=== PATIENT | female | born 1980 | race Hispanic/Latino ===

== ENCOUNTER 2018-03-02 07:34 | Inpatient (IN) | payer MEDICAID, SELFPAY ==
[2018-03-02 08:13] VITALS: BMI 30.2
[2018-03-02 09:13] LABS: Amnisure Test RUPTURE DETECTED (No Rupture)
[2018-03-02 09:14] LABS: Amnisure Internal Control QC ACCEPTABLE (ACCEPTABLE)
[2018-03-02] MEDS ORDERED: Acetaminophen 500 MG TAB PO PRN (09:31)
[2018-03-02] MEDS ORDERED: Promethazine HCl 25 MG/ML VIAL IM PRN ×2 (09:31→21:09)
[2018-03-02] MEDS ORDERED: Ibuprofen 800 MG TAB PO PRN (09:31)
[2018-03-02] MEDS ORDERED: Diphenoxylate HCl/Atropine Tablet PO PRN (09:31)
[2018-03-02] MEDS ORDERED: Lidocaine 1% (PF) 30 ML VIAL SC PRN (09:31)
[2018-03-02] MEDS ORDERED: Ondansetron PF 4 MG/2 ML Vial IVP PRN ×2 (09:31→21:09)
[2018-03-02] MEDS ORDERED: Acetaminophen/Codeine 30-300mg Tablet PO PRN (09:31)
[2018-03-02] MEDS ORDERED: Methylergonovine 0.2 MG/ML VIAL IM PRN (09:31)
[2018-03-02] MEDS ORDERED: Carboprost 250 MCG/ML AMP IM PRN (09:31)
[2018-03-02] MEDS ORDERED: Misoprostol 200 MCG TAB PR PRN (09:31)
[2018-03-02] MEDS ORDERED: Butorphanol Tartrate 1 MG/ML VIAL SLOW IVP PRN (09:31)
[2018-03-02] MEDS ORDERED: NS w/ Oxytocin 10 units 500 ML IV SCH (09:45)
[2018-03-02] MEDS ORDERED: Penicillin G Potassium 5 MILL.UNITS in Sodium Chloride 0.9% 100 ML IVPB SCH (09:45)
[2018-03-02] MEDS: Lactated Ringer's 1,000 ML IV SCH ×2 (09:45→19:51)
[2018-03-02] MEDS ORDERED: Dextrose 50% Abboject 50 ML SYRINGE SLOW IVP PRN (09:57)
[2018-03-02] MEDS ORDERED: HumaLOG 300 UNITS/3 ML VIAL SC PRN ×2 (09:57→10:12)
[2018-03-02] MEDS ORDERED: Dextrose 5% in Water 1,000 ML IV PRN (09:57)
[2018-03-02] MEDS ORDERED: Betamet Acet/Betamet Na Ph 30 MG/5 ML VIAL IM SCH (10:00)
[2018-03-02] MEDS ORDERED: Penicillin G Potassium 5 MILL.UNITS VIAL ONE (10:02)
[2018-03-02 10:05] LABS: Mean Corpuscular HGB CONC 34.9 g/dL (32.0-36.0); Mean Corpuscular Hemoglobin 26.4 pg (27.0-31.0); Mean Corpuscular Volume 75.5 fL (78.0-98.0); Mean Platelet Volume 10.8 fL (7.4-10.4); Platelet Count 222 thou/uL (130-400); RBC Distribution Width 19.2 % (11.5-14.5); Red Blood Cell (RBC) Count 4.91 mill/uL (4.20-5.40); White Blood Cell (WBC) Count 7.4 thou/uL (4.8-10.8)
[2018-03-02 10:25] LABS: ALT (SGPT) 16 U/L (8-55); AST (SGOT) 18 U/L (5-34); Albumin 3.3 g/dL (3.5-5.0); Alkaline Phosphatase 197 U/L (40-150); Anion Gap 14 mmol/L (10-20); BUN (Urea Nitrogen) 6 mg/dL (7.0-18.7); Bilirubin, Total 0.8 mg/dL (0.2-1.2); Calc. Creatinine Clearance 154 mL/min (70-130); Calcium 8.8 mg/dL (7.8-10.44); Carbon Dioxide 18 mmol/L (22-29); Chloride 109 mmol/L (98-107); Estimated GFR-MDRD Greater than 90; Globulin 3.3 g/dL (2.4-3.5); Glucose 75 mg/dL (70-105); Potassium 4.2 mmol/L (3.5-5.1); Protein, Total 6.6 g/dL (6.0-8.3); Sodium 137 mmol/L (136-145)
[2018-03-02 10:43] LABS: Hemoglobin A1c 6.4 % (4.0-6.0)
[2018-03-02 10:54] LABS: HBSAg Index 0.16 S/CO (0-0.99); Hep B Surf Ag Non-Reactive S/CO (NonReactive)
[2018-03-02 10:55] LABS: Syphilis Antibody Nonreactive (Nonreactive); Syphilis Antibody Index 0.09 S/CO (<1.00 Non-Reactive)
[2018-03-02] MEDS ORDERED: Insulin Regular 100 units/100 ml in NS IVPB SCH (11:00)
[2018-03-02] MEDS ORDERED: Dextrose 5%-Lactated Ringers 1,000 ML IV SCH ×2 (11:00→23:15)
[2018-03-02] MEDS: HumaLOG 300 UNITS/3 ML VIAL SC SCH ×2 (12:38→18:34)
--- NOTE | 2018-03-02 12:41 | PDOC.LDHP ---
Labor and Delivery H&P Chief complaint: loss of fluid HPI: 37 y/o at 35.5wga per 14w sono c/w LMP presents with LOF. Was sleeping this am ay 0700 and felt fluid and came to hospital. Denies HENRY, SOB, CP, Vaginal bleeding, dysuria, feeling contractions, fever, chills. Cervical chec 2/ 40/-2 with ctx q2min and cat 1 tracing. Her previous history includes 2 term vaginal deliveries in 1996 and 2004 that were reportedly uncomplicated. history for this includes GDM, AMA, BV infection, GBS+ curine cultures x2. labs reviewed and unremarkable. Current complications: gestational diabetes Current medications: pre-rosalai vitamins (insulin; see plan) Previous surgical history: other (ovarian cyst removal) Allergies/Adverse Reactions: Allergies Allergy/AdvReac Type Severity Reaction Status Date / Time No Known Allergies Allergy Verified 03/02/18 08:13 Social history: none - Physical Exam Vital signs reviewed and normal: yes General: NAD, resting Heart: RRR Lungs: nonlabored breathing Abdomen: NTTP (3cm vertical midline scar on abdomen below umbilicus) Extremeties: no edema FHT: category 1 - Vaginal Exam cm dilated: 2 Effacement: 50% Station: -2 - OB Labs Blood type: A RH: positive Antibody Screen: negative HIV: negative HEPSAg: positive (358) GBS: positive Urine drug screen: not done Rubella: immune - Plan -: 37 y/o f at 35.5 wga admitted for ROM 1. PPROM - ROM confirmed by amnisure at 0700 03/02. Ordered Penicillin prophylaxis dose for GBS. Also has been given Betamehosone dose and one scheduled tomorrow. Category 1 tracing. 240/-2 on cervical exam and will monitor for change and labor. Monitor for s/s of infection/fever as well. BPP, biometry and Umbilical artery dopplers ordered. Procal negative. Also screening for G/C and VP3 ordered. 2. GDM - Believed to be class B as she is on a home regimen of Humalog 16u before breakfast and 12u before dinner. Also on Hovolin N 36u before breakfast and 14u at bedtime. We are holding this currently and she has been placed on Humalog moderate SSI. Her BG was 78 upon admission. Will start insulin drip as needed if unable to control with SSI. Asymptomatic. A1c 6.5. Accuchecks q2hr. 3. Advanced Maternal Age - Continue to closely monitor mother and activity. 4. GBS+: Pos from 2 pos cultures during care. Penicillin ordered. Pericare with cervical checks. FMR OB H&P: A/P - Problem List (1) premature rupture of membranes (PPROM) with unknown onset of labor Current Visit: Yes Status: Acute Code(s): O42.919 - PRETRM MCKENNA ROM, UNSP TIME BETW RUPT AND ONST LABR, UNSP TRI (2) Gestational diabetes mellitus (GDM) affecting Current Visit: Yes Status: Acute Code(s): O24.419 - GESTATIONAL DIABETES MELLITUS IN , UNSP CONTROL (3) Positive GBS test Current Visit: Yes Status: Acute Code(s): B95.1 - STREPTOCOCCUS, GROUP B, CAUSING DISEASES CLASSD ELSWHR (4) Advanced maternal age (AMA) in Current Visit: Yes Status: Acute Code(s): FKZ9107 - Discussion: Date/Time: 03/02/18 1318 This H&P was discussed with Dr. Renner who agrees with the above documentation and plan. Addendum - Attending - Attending Attestation Date/Time: 03/02/18 1633 I personally evaluated the patient and discussed the management with Dr. Valenzuela I agree with the History, Examination, Assessment and Plan documented above with any addition or exceptions noted below. 38 yo female at 35.5 wks by LMP/14.2 wk sono here for ROM. Patient reports ROM at 0700 this morning. Clear fluid. No contractions. No evidence of bleeding. Denies discharge. +FM KARMEN: 04/01/18 VS reviewed. Fundus nontender Fluid in vault on exam. No discharge. Vaginal swabs taken. SVE 50/-3 Cat 1 tracing. 1 ctx q 3 min 1. PPROM: ROM on 03/02/18 at 0700. Will repeat exam in 2 hours. Discussed steroid use for FLM. Discussed pitocin for augmentation and decreasing risk for IUI. Send placenta to path. Cultures pending. sono pending. 2. sIUP: IOB labs reviewed. Anatomy reviewed. NILM/HPV 09/2017. 1 hour gtt = 358. 3T negative. GBS positive. Unsure when Flu/Tdap given. Will need to follow up with PNC on Saturday. Cephalic. EFW 6lbs. Request epidural for pain control. 3. AMA: Anatomy reviewed. Level II sono. Unsure if NIPT performed. 4. Hx of blood transfusion: Antibody screen negative. 5. Hx of ovarian cyst removal with low vertical skin incision 6. hx of depression: Monitor closely 7. Class B vs A2 GDM: Concern for possible pregestational DM due to significant 1 hour gtt value. Has been followed by MFM. Unable to see if ECHO performed. Has been on insulin. Check A1c today. Continue q 2 hour accu checks with SSI adjustments. Insulin drip if needed. Change to q 1 hour accu checks in active labor. 8. GBS carrier: PCN started. GBS bacteruria x2. Possible culprit. 9. hx of BV and candidia infection in 3T: treated. VP3 pending. 10. Iron def anemia: Has been on supplemental iron 11. Rubella nonimmune: MMR pp Dispo: Admit and monitor closely. Continue to discuss expectant management vs active management. Bhargav
[2018-03-02] MEDS: Penicillin G 2.5 MILL.units 2.5 MILL.UNITS in Premix Bag 1 BAG IVPB SCH ×3 (14:07→22:03)
--- NOTE | 2018-03-02 15:39 | ULT ---
OB ULTRASOUND: HISTORY: Premature rupture of membranes. COMPARISON: None. FINDINGS: Real-time smith-scale and color evaluation of the gravid uterus was performed. The exam is limited du e to interference, likely from the MR scanner. A single viable intrauterine with an averag e ultrasound age of 35 weeks and 0 days. Estimated date of delivery is 04/06/2018. Estimated weight is 5 lbs 14 oz (41st percentile). BIOMETRY: BIPARIETAL DIAMETER: 33 weeks 2 days (8.29 cm). HEAD CIRCUMFERENCE: 35 weeks 1 day (31.39 cm). ABDOMINAL CIRCUMFERENCE: 35 weeks 4 days (31.67 cm). FEMUR LENGTH: 36 weeks 0 days (7.03 cm). AMNIOTIC FLUID INDEX: 7.1 cm. BIOPHYSICAL PROFILE SCORE: 8/8. POSITION: Vertex. PLACENTA: Posterior. heart rate documented at 135 beats per minute. The cervix is not interrogated. The placenta appears to be fundal. Presentation is vertex. No plac enta previa is appreciated. IMPRESSION: 1. Single viable intrauterine with low amniotic fluid with an index of 7.1. 2. Biophysical profile score 8/8. 3. The technologist states the cervix is measured at 2.98 cm. POS: [facility]
--- NOTE | 2018-03-02 17:23 | PDOC.LDPN ---
Labor & Delivery Progress Note - Subjective Subjective: comfortable - Objective Vital signs reviewed and normal: yes General: NAD, resting Uterine fundus: tender to palpation Dilation: 3 Effacement: 50% Station: -2 FHT: category 1 - Assessment (1) premature rupture of membranes (PPROM) with unknown onset of labor Code(s): O42.919 - PRETRM MCKENNA ROM, UNSP TIME BETW RUPT AND ONST LABR, UNSP TRI Current Visit: Yes Status: Acute (2) Gestational diabetes mellitus (GDM) affecting Code(s): O24.419 - GESTATIONAL DIABETES MELLITUS IN , UNSP CONTROL Current Visit: Yes Status: Acute (3) Advanced maternal age (AMA) in Code(s): NQI5854 - Current Visit: Yes Status: Acute (4) Positive GBS test Code(s): B95.1 - STREPTOCOCCUS, GROUP B, CAUSING DISEASES CLASSD ELSWHR Current Visit: Yes Status: Acute Plan: continue plan of care, labor augmentation, pitocin for augmentation -: 1. PPROM: - ROM on 03/02/18 at 0700. Repeat exam at 1530 was 3/50/-2. - Got first dose of betamethasone, 2nd dose tomorrow - GBS prophylaxis s/p 2 doses of penicillin - going from expectant management to active - plan to start pitocin tonight 2. sIUP: - IOB labs reviewed. Anatomy reviewed. NILM/HPV 09/2017. 1 hour gtt = 358. 3T negative. GBS positive. Unsure when Flu/Tdap given. Will need to follow up with PNC on Saturday. Cephalic. EFW 6lbs. Request epidural for pain control. 3. AMA: - Anatomy reviewed. Level II sono. Unsure if NIPT performed. 4. Hx of blood transfusion: - Antibody screen negative. 5. Class B vs A2 GDM: - Has been followed by M. - Has been on insulin. A1c today was 6.4. - Continue q 2 hour accu checks with SSI adjustments. Insulin drip if need SSI X2. Change to q 1 hour accu checks in active labor. 6. GBS carrier: - PCN started. GBS bacteruria x2. 7. hx of BV and candidia infection in 3T: - treated. VP3 pending. Addendum - Attending - Attending Attestation Date/Time: 03/02/181812 I personally evaluated the patient and discussed the management with Dr. Valenzuela I agree with the History, Examination, Assessment and Plan documented above with any addition or exceptions noted below. 38 yo female at 35.5 wks by LMP/14.2 wk sono here for ROM. Patient reports ROM at 0700 this morning. Clear fluid. KARMEN: 04/01/18 Patient doing well. No acute changes. Now breathing through contractions. Pain rated 6/10. VS reviewed. Fundus nontender SVE 50/-2 Cat 1 tracing. 1 ctx q 2 - 3 min 1. PPROM: ROM on 03/02/18 at 0700. Will repeat exam in 4 hours. Steroids given for FLM. Discussed pitocin for augmentation and decreasing risk for IUI. Send placenta to path. Cultures pending. sono reviewed. At this time will continue expectant management. 2. sIUP: IOB labs reviewed. Anatomy reviewed. NILM/HPV 09/2017. 1 hour gtt = 358. 3T negative. GBS positive. Unsure when Flu/Tdap given. Will need to follow up with PNC on Saturday. Cephalic. EFW 6lbs. Request epidural for pain control. 3. AMA: Anatomy reviewed. Level II sono. Unsure if NIPT performed. 4. Hx of blood transfusion: Antibody screen negative. 5. Hx of ovarian cyst removal with low vertical skin incision 6. hx of depression: Monitor closely 7. Class B vs A2 GDM: Glucose at goal. Concern for possible pregestational DM due to significant 1 hour gtt value. Has been followed by M. Unable to see if ECHO performed. Has been on insulin. A1c today was 6.4%. Continue q 2 hour accu checks with SSI adjustments. Insulin drip if needed. Change to q 1 hour accu checks in active labor. 8. GBS carrier: PCN started. GBS bacteruria x2. Possible culprit. 9. hx of BV and candidia infection in 3T: treated. VP3 negative today. 10. Iron def anemia: Has been on supplemental iron, will continue 11. Rubella nonimmune: MMR pp Dispo: Continue to discuss expectant management vs active management. Repeat exam in 4 hours. Bhargav
[2018-03-02] MEDS ORDERED: HumaLOG 300 UNITS/3 ML VIAL SC SCH (18:45)
[2018-03-02] MEDS ORDERED: Fentanyl 4 mcg/Bup 0.1% Cadd 100 ML ONE (20:22)
[2018-03-02] MEDS ORDERED: Fentanyl 100 MCG/2 ML VIAL ONE (20:38)
[2018-03-02] MEDS ORDERED: Bupivacaine 0.5% 10 ML VIAL ONE (20:38)
--- NOTE | 2018-03-02 20:40 | PDOC.LDPN ---
Labor & Delivery Progress Note - Subjective Subjective: painful contractions - Objective Vital signs reviewed and normal: yes General: NAD Uterine fundus: palpable contractions Dilation: 4 Effacement: 50% Station: -1 FHT: category 1 [place] contractions every: 5-6 min IUPC placed: yes -: 1. PPROM: - ROM on 03/02/18 at 0700. Repeat exam at 1700 was 4/60/-1. - Betamethisone x1 dose - GBS prophylaxis s/p 3 doses of penicillin - Epidural now, the start pitocin per protocol. 2. sIUP: - IOB labs reviewed. Anatomy reviewed. NILM/HPV 09/2017. 1 hour gtt = 358. 3T negative. GBS positive. Unsure when Flu/Tdap given. Will need to follow up with PNC on Saturday. Cephalic. EFW 6lbs. Request epidural for pain control. 3. AMA: - Anatomy reviewed. Level II sono. Unsure if NIPT performed. 4. Hx of blood transfusion: - Antibody screen negative. 5. Class B vs A2 GDM: - Has been followed by M. - Has been on insulin. A1c today was 6.4. - Continue q 2 hour accu checks with SSI adjustments. Insulin drip if need SSI X2. Change to q 1 hour accu checks in active labor. - Glucose well controlled at this time. 6. GBS carrier: - PCN started. 7. hx of BV and candidia infection in 3T: - treated. VP3 pending.
[2018-03-02] MEDS ORDERED: Naloxone HCl 0.4 mg/ml Vial IVP PRN ×2 (21:09)
[2018-03-02] MEDS ORDERED: Acetaminophen 325 MG TAB PO PRN (21:09)
[2018-03-02] MEDS ORDERED: Lactated Ringer's 500 ML IV PRN (21:09)
[2018-03-02] MEDS ORDERED: diphenhydrAMINE 50 MG/ML VIAL IVP PRN (21:09)
[2018-03-02] MEDS ORDERED: Hydrocerin (Eucerin) Cream 120 gm Jar TOP PRN (21:09)
[2018-03-02] MEDS ORDERED: ePHEDrine/0.9% NaCl/PF SYRINGE 50 mg/10 ml SLOW IVP PRN (21:09)
[2018-03-02] MEDS ORDERED: Fentanyl 100 MCG/2 ML VIAL I-THECAL ONE (21:10)
[2018-03-02] MEDS ORDERED: Bupivacaine 0.25% 10 ML VIAL EPIDURAL ONE (21:11)
[2018-03-02] MEDS ORDERED: Fentanyl 4 mcg/Bupivacaine 0.1% Cassette 100 ML EPIDURAL SCH (21:15)
[2018-03-02] MEDS ORDERED: Communication Order-Pharmacy FS SCH (21:15)
--- NOTE | 2018-03-02 23:11 | PDOC.LDPN ---
Labor & Delivery Progress Note - Subjective Subjective: comfortable - Objective Vital signs reviewed and normal: yes General: NAD, resting Dilation: 7/80/-2 Effacement: 75% Station: -2 FHT: category 1 [place] contractions every: 1-2 min Other exam findings: bloody show -: 1. PPROM: - ROM on 03/02/18 at 0700. Repeat exam at 2300 was 7/90/-2. - Betamethisone x1 dose - GBS prophylaxis s/p 4 doses of penicillin - Epidural effective 2. sIUP: - IOB labs reviewed. Anatomy reviewed. NILM/HPV 09/2017. 1 hour gtt = 358. 3T negative. GBS positive. Unsure when Flu/Tdap given. Will need to follow up with PNC on Saturday. Cephalic. EFW 6lbs. Request epidural for pain control. 3. AMA: - Anatomy reviewed. Level II sono. Unsure if NIPT performed. 4. Hx of blood transfusion: - Antibody screen negative. 5. Class B vs A2 GDM: - Has been followed by [facility]. - Has been on insulin. A1c today was 6.4. - Continue q 2 hour accu checks with SSI adjustments. Insulin drip if need SSI X2. Change to q 1 hour accu checks in active labor. - Glucose well controlled at this time. - Most recent glucose 69. start D5LR. 6. GBS carrier: - PCN started. 7. hx of BV and candidia infection in 3T: - treated. VP3 negative.
[2018-03-03] MEDS ORDERED: Lidocaine 1% (PF) 30 ML VIAL ONE (00:35)
[2018-03-03] MEDS ORDERED: NS / Oxytocin 40 units/1000ml 1,000 ML ONE (00:35)
[2018-03-03] MEDS: NS / Oxytocin 40 units/1000ml 1,000 ML IV PRN ×2 (00:40→02:47)
--- NOTE | 2018-03-03 00:59 | PDOC.OPDEL ---
OB Operative/Delivery Note Delivery Dr/Surgeon: Yahaira Ness Assist: Jake Pre-Delivery Diagnosis: active labor Procedure/Post Delivery Dx: spontaneous vaginal delivery Weeks gestation: 35 (35.6) Anesthesia: epidural - Findings A Sex: female - 1 min: 8 - 5 min: 9 - Additional Findings/Plan Placenta delivered: spontaneous Repaired Obstetrical Laceration: 1st degree (hemostatic, no repair) Estimated blood loss: 6mL Compilations/Other Findings: This is 38yo F @ 35.6wks who delivered a viable F infant at 0036 on . QBL 6mL. Following an antepartum course complicated by GBS positive, AMA, GDM, and PPROM, a vigorous F was delivered over an intact perineum in the occipitoanterior position. Anterior Shoulder and then remainder of the body delivered. No nuchal cord. The head was held down and mouth and nares were bulb suctioned. Cord clamped after delayed cord clamping and cut and cord blood collected. Placenta delivered intact with Wren mechanism and a 3 vessel cord noted. Fundal massage was performed and the fundus was firm. The cervix and vagina were inspected and found to have 1st degree perineal laceration, hemostatic. Infant went to nursery in good condition for routine care. Apgars were 8/9 at 1 & 5 minutes, respectively. Patient tolerated delivery well and went to after routine recovery/care. Post delivery plan: routine recovery Addendum - Attending - Attending Attestation Date/Time: 03/03/18 0710 I was present and supervised the of a viable female infant to a 38 yo @ 35 6/7 weeks with A2GDM. Shoulders and body delivered easily. Apgars 8/ 9. Placenta delivered spontaneously and intact. 3V cord. Hemostatic 1* lac. QBL = 6 mL. Residents: [place]/Yahaira.
[2018-03-03] MEDS ORDERED: Preparation H Ointment 28 GM TUBE PR PRN (02:41)
[2018-03-03] MEDS ORDERED: Benzocaine/Menthol 20-0.5% 60 ML CAN TOP PRN (02:41)
[2018-03-03] MEDS ORDERED: Milk Of Magnesia 30 ML UDCUP PO PRN (02:41)
[2018-03-03] MEDS ORDERED: Bisacodyl 10 MG SUPP PR PRN (02:41)
[2018-03-03] MEDS ORDERED: HumaLOG 300 UNITS/3 ML VIAL SC SCH ×2 (07:30→21:00)
[2018-03-03] MEDS ORDERED: NPH, Human Insulin Isophane 300 UNIT/3 ML VIAL SC SCH ×2 (07:30→21:00)
[2018-03-03] MEDS: Ibuprofen 800 MG TAB PO SCH ×4 (07:51→22:04)
[2018-03-03] MEDS: Lactated Ringer's 1,000 ML IV SCH (07:51)
[2018-03-03] MEDS: Penicillin G 2.5 MILL.units 2.5 MILL.UNITS in Premix Bag 1 BAG IVPB SCH (07:54)
[2018-03-03] MEDS: Prenatal Vitamin 1 TAB PO SCH (08:16)
[2018-03-03] MEDS: Docusate Calcium (SURFAK) 240 MG CAP PO SCH ×2 (08:16→22:05)
[2018-03-03] MEDS ORDERED: Adacel (T-DAP) 0.5 ML SYRINGE IM ONE (09:00)
--- NOTE | 2018-03-03 12:06 | PDOC.LDPN ---
Labor & Delivery Progress Note - Subjective Subjective: no concerns - Objective Vital signs reviewed and normal: yes General: NAD, resting Uterine fundus: non tender Dilation: 2 Effacement: 50% Station: -2 FHT: category 1 [place] contractions every: 3 - Assessment (1) premature rupture of membranes (PPROM) with unknown onset of labor Code(s): O42.919 - PRETRM MCKENNA ROM, UNSP TIME BETW RUPT AND ONST LABR, UNSP TRI Current Visit: Yes Status: Acute (2) Gestational diabetes mellitus (GDM) affecting Code(s): O24.419 - GESTATIONAL DIABETES MELLITUS IN , UNSP CONTROL Current Visit: Yes Status: Acute (3) Positive GBS test Code(s): B95.1 - STREPTOCOCCUS, GROUP B, CAUSING DISEASES CLASSD ELSWHR Current Visit: Yes Status: Acute (4) Advanced maternal age (AMA) in Code(s): [id number] - Current Visit: Yes Status: Acute -: PPROM: Cervical check unchanged from 2hr ago. Vitals WNL, Ctx q2-3 mins. Pericare with cervical checks and anticipate ; augment as needed. Recheck 4 hr. GDM: BG 78, will continue SSI. Also give 10u prior to meals. Insulin drip as needed. GBS+: Continue ppx Addendum - Attending - Attending Attestation Date/Time: 03/02/18 1308 I personally evaluated the patient and discussed the management with Dr. Valenzuela I agree with the History, Examination, Assessment and Plan documented above with any addition or exceptions noted below. 38 yo female at 35.5 wks by LMP/14.2 wk sono here for ROM. Patient reports ROM at 0700 this morning. Clear fluid. KARMEN: 04/01/18 Patient doing well. No acute changes. Still feeling intermittent contractions. On [place] remains frequent and regular. VS reviewed. Fundus nontender SVE /-3 Cat 1 tracing. 1 ctx q 3 min 1. PPROM: ROM on 03/02/18 at 0700. Will repeat exam in 4 hours. Steroids given for FLM. Discussed pitocin for augmentation and decreasing risk for IUI. Send placenta to path. Cultures pending. sono reviewed. 2. sIUP: IOB labs reviewed. Anatomy reviewed. NILM/HPV 09/2017. 1 hour gtt = 358. 3T negative. GBS positive. Unsure when Flu/Tdap given. Will need to follow up with PNC on Saturday. Cephalic. EFW 6lbs. Request epidural for pain control. 3. AMA: Anatomy reviewed. Level II sono. Unsure if NIPT performed. 4. Hx of blood transfusion: Antibody screen negative. 5. Hx of ovarian cyst removal with low vertical skin incision 6. hx of depression: Monitor closely 7. Class B vs A2 GDM: Concern for possible pregestational DM due to significant 1 hour gtt value. Has been followed by MFM. Unable to see if ECHO performed. Has been on insulin. A1c today was 64%. Continue q 2 hour accu checks with SSI adjustments. Insulin drip if needed. Change to q 1 hour accu checks in active labor. 8. GBS carrier: PCN started. GBS bacteruria x2. Possible culprit. 9. hx of BV and candidia infection in 3T: treated. VP3 negative today. 10. Iron def anemia: Has been on supplemental iron, will continue 11. Rubella nonimmune: MMR pp Dispo: Continue to discuss expectant management vs active management. Repeat exam in 4 hours. Bhargav
[2018-03-04] MEDS: Ibuprofen 800 MG TAB PO SCH ×3 (06:01→21:03)
--- NOTE | 2018-03-04 06:18 | PDOC.PP ---
Post Progress Note Post Day #: 1 Subjective: States pain is controlled. Concerned she is not breast feeding well and the baby is not eating enough. No other concerns. PO intake tolerated: yes Flatus: yes Ambulation: yes Vital Signs (12 hours) Temp Pulse Resp BP Pulse Ox 03/04/18 00:00 98.4 F 86 18 96/51 L 03/03/18 21:00 97.6 F 80 16 104/57 L 98 03/03/18 20:00 99 Weight Weight 70.307 kg - Physical Examination General: NAD Cardiovascular: no m/r/g, RRR Respiratory: clear to auscultation bilaterally, non-labored breathing Abdominal: + bowel sounds, lochia, no distention, appropriately TTP Fundus firm & at: 3 cm below umbilcus Extremities: negative homans (B) Perineum: normal appearing Neurological: no gross focal deficits Psychiatric: A&Ox3, normal affect Result Diagrams: 03/02/18 09:53 03/02/18 09:53 Additional Labs: Post Labs Blood Type A POSITIVE 03/02/18 09:53 Hep Bs Antigen Non-Reactive S/CO (NonReactive) 03/02/18 09:53 (1) Advanced maternal age (AMA) in Code(s): [id number] - Status: Acute (2) Gestational diabetes mellitus (GDM) affecting Code(s): O24.419 - GESTATIONAL DIABETES MELLITUS IN , UNSP CONTROL Status: Acute (3) Positive GBS test Code(s): B95.1 - STREPTOCOCCUS, GROUP B, CAUSING DISEASES CLASSD ELSWHR Status : Acute (4) premature rupture of membranes (PPROM) with unknown onset of labor Code(s): O42.919 - PRETRM MCKENNA ROM, UNSP TIME BETW RUPT AND ONST LABR, UNSP TRI Status: Acute - Assessment/Plan 1. IUP at 35.6 wk s/p delivery. - normal course - Need to monitor baby for 48 hours due to GBS status - difficult breast feeding, working with staffing consultant. 2. GDMA2 vs DM type B - blood glucose elevated at 2 AC and 1 HS check yesterday. - Started metformin 500 mg BID - Will switch accuchecks to fasting and 2 hr post prandial. - monitor overnight and increase metformin if necessary 3. GBS+ - monitor baby for 48 hours 4. AMA - normal appearing . Addendum - Attending - Attending Attestation Date/Time: 03/04/18 0357 I personally evaluated the patient and discussed the management with Dr. Syed I agree with the History, Examination, Assessment and Plan documented above with any addition or exceptions noted below. 38 yo now female s/p at 35.5 wks on 03/03/18 at 00:36 HD# 2 PPD# 1 VS reviewed. Labs reviewed. NAD. RRR. no murmurs. CTA bilaterally. Fundus firm below umbilicus. nontender. FROM x 4. no edema. 1. PPROM at 35.5 wks with PTD at 35.6 wks: Will need 17-OHP with future pregnancies. CT/GC pending from admission. 2. s/p : Routine pp care. 3. AMA 4. Hx of blood transfusion: Antibody screen negative. 5. Hx of ovarian cyst removal with low vertical skin incision 6. hx of depression: Monitor closely 7. Class B vs A2 GDM: Glucose at goal throughout labor. Did not require insulin. Accuchecks monitored throughout the day yesterday. No glucose above 200. Patient received steroids and yet still did not have severe range glucose readings. Will stop accu checks. Will need 2 hour OGTT at 6 to 8 wk pp visit. No need for metformin at this time. 8. GBS carrier: No s/sx of infection. 9. hx of BV and candidia infection in 3T: treated. VP3 negative at admission. 10. Iron def anemia: Continue iron 11. Rubella nonimmune: MMR pp Dispo: Continue pp care. Likely d/c in AM. Continue to encourage breast feeding. nurse following. Bhargav
[2018-03-04] MEDS ORDERED: metFORMIN 500 MG TAB PO SCH (08:00)
[2018-03-04] MEDS: Docusate Calcium (SURFAK) 240 MG CAP PO SCH ×2 (08:08→21:04)
[2018-03-04] MEDS: Prenatal Vitamin 1 TAB PO SCH (08:08)
[2018-03-04] MEDS ORDERED: Measles/Mumps/Rubella 10 MCG/0.5 ML VIAL SC ONE (17:00)
[2018-03-05] MEDS: Ibuprofen 800 MG TAB PO SCH (05:46)
--- NOTE | 2018-03-05 07:22 | PDOC.PP ---
Post Progress Note Post Day #: 2 Subjective: breast feeding better. wants to go home. PO intake tolerated: yes Flatus: yes Ambulation: yes Vital Signs (12 hours) Temp Pulse Resp BP Pulse Ox 03/04/18 20:25 98.1 F 79 20 134/65 99 Weight Weight 70.307 kg - Physical Examination General: NAD Cardiovascular: no m/r/g, RRR Respiratory: clear to auscultation bilaterally, non-labored breathing Abdominal: + bowel sounds, no distention, appropriately TTP Fundus firm & at: 3 cm below umbilicus Extremities: negative homans (B) Perineum: WNL Neurological: no gross focal deficits Psychiatric: A&Ox3, normal affect Result Diagrams: 03/02/18 09:53 03/02/18 09:53 Additional Labs: Post Labs Blood Type A POSITIVE 03/02/18 09:53 Hep Bs Antigen Non-Reactive S/CO (NonReactive) 03/02/18 09:53 (1) Advanced maternal age (AMA) in Code(s): [id number] - Status: Acute (2) Gestational diabetes mellitus (GDM) affecting Code(s): O24.419 - GESTATIONAL DIABETES MELLITUS IN , UNSP CONTROL Status: Acute (3) Positive GBS test Code(s): B95.1 - STREPTOCOCCUS, GROUP B, CAUSING DISEASES CLASSD ELSWHR Status : Acute (4) premature rupture of membranes (PPROM) with unknown onset of labor Code(s): O42.919 - PRETRM MCKENNA ROM, UNSP TIME BETW RUPT AND ONST LABR, UNSP TRI Status: Acute - Assessment/Plan 1. IUP at 35.6 wk s/p delivery. - normal course - Need to monitor baby for 48 hours due to GBS status - Baby feeding better. 2. GDMA2 vs DM type B - d/c'ed metformin yesterday since no glucose >200 - 2 hr GTT 6-8 wk PP. 3. GBS+ - monitor baby for 48 hours 4. AMA - normal appearing infant. 5. Rubella non-immune - receive MMR vaccine - Dispo- d/c today. Addendum - Attending - Attending Attestation Date/Time: 03/05/18 1300 I personally evaluated the patient and discussed the management with Dr. Syed I agree with the History, Examination, Assessment and Plan documented above with any addition or exceptions noted below. 38 yo now female s/p at 35.5 wks on 03/03/18 at 00:36 HD# 3 PPD# 2 VS reviewed. Labs reviewed. NAD. RRR. no murmurs. CTA bilaterally. Fundus firm below umbilicus. nontender. FROM x 4. no edema. 1. PPROM at 35.5 wks with PTD at 35.6 wks: Will need 17-OHP with future pregnancies. CT/GC pending from admission. Placenta path WNL. 2. s/p : Routine pp care. 3. AMA 4. Hx of blood transfusion: Antibody screen negative. 5. Hx of ovarian cyst removal with low vertical skin incision 6. hx of depression: Monitor closely 7. Class B vs A2 GDM: Glucose at goal throughout labor. Did not require insulin. Accuchecks monitored throughout the day yesterday. Patient received steroids and yet still did not have severe range glucose readings. Will stop accu checks. Will need 2 hour OGTT at 6 to 8 wk pp visit. No need for metformin at this time. 8. GBS carrier: No s/sx of infection. 9. hx of BV and candidia infection in 3T: treated. VP3 negative at admission. 10. Iron def anemia: Continue iron 11. Rubella nonimmune: MMR pp Dispo: Doing well. Ok to d/c this afternoon. Follow up at [facility] in 2 wks. DM screening at 6 wks. Bhargav
[2018-03-05 08:14] VITALS: BP 107/56; TEMP 98.3
[2018-03-05] MEDS: Prenatal Vitamin 1 TAB PO SCH (08:21)
[2018-03-05] MEDS: Docusate Calcium (SURFAK) 240 MG CAP PO SCH (08:21)
[2018-03-05 19:14] LABS: Chlamydia by PCR Not Detected (NotDetected); GC by PCR Not Detected (NotDetected)
== END 2018-03-05 12:05 | disposition home or self-care (01) | DRG 807 ==
LOC: L&D/OP 07:34 → L&D 17:52 → 3SW 03-03 03:31
PROVIDERS: ADMIT Student in an Organized Health Care Education/Training Program; ATTEND Family Medicine
PROC: 10E0XZZ Delivery of Products of Conception, External Approach (ICD-10-PCS; principal; 2018-03-03)
DX: O42.913 Preterm premature rupture of membranes, unspecified as to length of time between rupture and onset of labor, third trimester (principal); Z37.0 Single live birth; O24.419 Gestational diabetes mellitus in pregnancy, unspecified control; O99.824 Streptococcus B carrier state complicating childbirth; O70.0 First degree perineal laceration during delivery; Z98.890 Other specified postprocedural states; Z3A.35 35 weeks gestation of pregnancy
CPT/HCPCS: 36416; 51702; 76815; 76819; 80053; 83036; 84112; 84145; 85027; 86780; 86850; 86900; 86901; 87340; 87480; 87491; 87510; 87591; 87660; 88307; 99285; J0702; J1815; J2001; J2540; J3010; J3490; J7050